=== PATIENT | female | born 1975 | race Caucasian/White ===

== ENCOUNTER 2021-08-16 09:53 | Emergency (ER) | payer SELFPAY ==
[~2021-08-16] VITALS: Ht 160 cm; Wt 59.0 kg
[2021-08-16] MEDS ORDERED: ONDANSETRON HCL 4 MG ORAL DISINTEGRATING TAB PO ONE (10:15)
[2021-08-16] MEDS ORDERED: ONDANSETRON ODT4 MG PO (11:10)
[2021-08-16] MEDS ORDERED: FIORICET 50-301 EACH PO (11:10)
== END 2021-08-16 11:31 | disposition home or self-care (01) ==
LOC: FSED 10:05
DX: S00.83XA Contusion of other part of head, initial encounter (principal); S13.4XXA Sprain of ligaments of cervical spine, initial encounter; W22.09XA Striking against other stationary object, initial encounter; Y93.01 Activity, walking, marching and hiking; Y92.008 Other place in unspecified non-institutional (private) residence as the place of occurrence of the external cause
CPT/HCPCS: 70450; 70486; 72125; 99283; Q0162